=== PATIENT | female | born 1990 | race American Indian/Alaskan Native ===

== ENCOUNTER 2017-01-15 13:05 | Outpatient (CLI) | payer MEDICAID ==
--- NOTE | 2017-01-15 14:33 | Ultrasound Report ---
ULTRASOUND ABDOMEN COMPLETE: Technique: Transabdominal ultrasound with color Doppler interrogation. History: Abdominal pain, nausea and vomiting. Findings: The liver is normal size, contour and echotexture. A large gallstone measuring up to 2.5 cm is identified. There is no evidence for gallbladder wall thickening or surrounding fluid. The CBD measures 2 mm. The visualized portions of the pancreas including the head and proximal body are within normal limits. There are numerous large shadowing renal stones in both kidneys. These may represents staghorn calculi. There may be minimal pyelocaliectasis within the right kidney. No obvious cystic disease or mass. The spleen and aorta are within normal limits. No aneurysmal dilatation is noted. No ascites. The bladder is unremarkable. IMPRESSION: Large gallstone. No findings to suggest acute cholecystitis. Severe bilateral nephrolithiasis. See above. Consider further evaluation with CT stone protocol.
== END 2017-01-15 13:06 | disposition home or self-care (01) ==
LOC: US 13:05
PROVIDERS: ATTEND General Practice
DX: K80.20 Calculus of gallbladder without cholecystitis without obstruction (principal); N20.0 Calculus of kidney; R11.12 Projectile vomiting; R11.0 Nausea
CPT/HCPCS: 76700

== ENCOUNTER 2017-07-23 14:06 | Emergency (ER) | payer MEDICAID, OTHER ==
[2017-07-23 14:41] LABS: Basophils % (Auto) 0.3 % (0.0-1.8); Eosinophils % (Auto) 1.4 % (0.0-4.3); Hematocrit 38.1 % (30.3-42.9); Hemoglobin 12.7 gm/dl (10.1-14.3); Mean Corpuscular HGB Conc 33 % (30-34); Mean Corpuscular Hemoglobin 28 pg (28-32); Mean Corpuscular Volume 84 fl (79-97); Platelet Count 229 K/mm3 (140-440); Red Blood Count 4.56 M/mm3 (3.65-5.03); Red Cell Distribution Width 13.5 % (13.2-15.2); White Blood Count 6.8 K/mm3 (4.5-11.0)
[2017-07-23 15:08] LABS: Alanine Aminotransferase 46 units/L (7-56); Albumin 4.4 g/dL (3.9-5); Albumin/Globulin Ratio 1.4 %; Alkaline Phosphatase 84 units/L (35-129); Anion Gap 18 mmol/L; BUN/Creatinine Ratio 15; Blood Urea Nitrogen 12 mg/dL (7-17); Calcium 9.4 mg/dL (8.4-10.2); Carbon Dioxide 24 mmol/L (22-30); Chloride 100.9 mmol/L (98-107); Glucose 104 mg/dL (65-100); Lipase 44 units/L (13-60); Potassium 4.1 mmol/L (3.6-5.0); Sodium 139 mmol/L (137-145); Total Protein 7.6 g/dL (6.3-8.2)
[2017-07-23 18:25] LABS: Bacteria,Urine 1+ /HPF (Negative); Bilirubin,Urine NEG (Negative); Blood,Urine MOD (Negative); Ketones,Urine NEG (Negative); Leukocyte Esterase,Urine LG (Negative); Nitrite,Urine NEG (Negative); Protein,Urine <15 mg/dL mg/dL (Negative); Urobilinogen,Urine < 2.0 mg/dL (<2.0)
[2017-07-23] MEDS ORDERED: NACL 0.9% 1000 ML 1,000 ML IV ONE (23:05)
[2017-07-23] MEDS ORDERED: TORADOL IV ONE (23:05)
--- NOTE | 2017-07-23 23:08 | Emergency Department Report ---
ED Abdominal Pain HPI - General Chief Complaint: Abdominal Pain Stated Complaint: ABDOMINAL PAIN Time Seen by Provider: 07/23/17 22:50 Source: patient Mode of arrival: Ambulatory Limitations: No Limitations - History of Present Illness Initial Comments: 27 yo female with known h/o gallstones for 1-2 yrs and seen here for the same in December 2016, here tonight with c/o right upper quadrant pain and chest tightness. She denies n/v/f/chills and admits to headache for a long time. Her last menstrual period was 07/17/17 and was abnormally light she thus is wondering if she is . She has one sexual partner and does not use protection. MD Complaint: abdominal pain -: days(s) (1) Location: RUQ Radiation: epigastric, chest Severity: moderate Severity scale (0 -10): 5 Quality: other (punching feeling) Consistency: intermittent Improves With: rest Worsens With: eating Associated Symptoms: other (headache). denies: nausea, vomiting, diarrhea, fever, chills - Related Data Home Medications Medication Instructions Recorded Confirmed Last Taken Magnesium 500 mg PO QDAY 01/04/16 01/04/16 01/04/16 Previous Rx's Medication Instructions Recorded Last Taken Type levETIRAcetam [Keppra TAB] 1,000 mg PO BID #60 tablet 11/26/15 Unknown Rx levETIRAcetam [Keppra TAB] 500 mg PO BID #60 tablet 02/12/16 Unknown Rx HYDROcodone/APAP 5-325 [[place] 1 each PO Q6HR PRN #10 tablet 07/24/17 Unknown Rx 5-325 mg TAB] Levofloxacin [Levaquin] 750 mg PO QDAY #7 tablet 07/24/17 Unknown Rx Allergies Allergy/AdvReac Type Severity Reaction Status Date / Time escitalopram oxalate Allergy Severe Seizure Verified 11/20/15 12:13 [From Lexapro] Sulfa (Sulfonamide Allergy Shortness Verified 07/23/17 14:14 Antibiotics) of Breath sulfamethoxazole Allergy Shortness Verified 07/23/17 14:14 [From Bactrim] of Breath trimethoprim [From Bactrim] Allergy Shortness Verified 07/23/17 14:14 of Breath ED Review of Systems ROS: Stated complaint: ABDOMINAL PAIN Other details as noted in HPI Constitutional: denies: chills, fever Eyes: denies: eye pain, eye discharge, vision change ENT: denies: ear pain, throat pain Respiratory: denies: cough, shortness of breath, wheezing Cardiovascular: denies: chest pain, palpitations Endocrine: no symptoms reported Gastrointestinal: denies: abdominal pain, nausea, vomiting, diarrhea Genitourinary: denies: urgency, dysuria, discharge Musculoskeletal: denies: back pain, joint swelling, arthralgia Skin: denies: rash, lesions Neurological: headache. 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) - Surgical History Past Surgical History?: Yes Additional Surgical History: D/C x 2 - Social History Smoking Status: Never Smoker Substance Use Type: None - Medications Home Medications: Home Medications Medication Instructions Recorded Confirmed Last Taken Type levETIRAcetam [Keppra TAB] 1,000 mg PO BID #60 tablet 11/26/15 01/04/16 Unknown Rx Magnesium 500 mg PO QDAY 01/04/16 01/04/16 01/04/16 History levETIRAcetam [Keppra TAB] 500 mg PO BID #60 tablet 02/12/16 Unknown Rx HYDROcodone/APAP 5-325 [[place] 1 each PO Q6HR PRN #10 tablet 07/24/17 Unknown Rx 5-325 mg TAB] Levofloxacin [Levaquin] 750 mg PO QDAY #7 tablet 07/24/17 Unknown Rx ED Physical Exam - General Limitations: No Limitations General appearance: alert, in no apparent distress - Head Head exam: Present: atraumatic, normocephalic - Eye Eye exam: Present: normal appearance, EOMI. Absent: scleral icterus - ENT ENT exam: Present: mucous membranes moist - Neck Neck exam: Present: normal inspection, full ROM - Respiratory Respiratory exam: Present: normal lung sounds bilaterally. Absent: respiratory distress, wheezes, rales, rhonchi, accessory muscle use, decreased breath sounds - Cardiovascular Cardiovascular Exam: Present: regular rate, normal rhythm, normal heart sounds - GI/Abdominal GI/Abdominal exam: Present: soft, tenderness (ruq), guarding. Absent: rebound, rigid - Rectal Rectal exam: Present: deferred ED Course Vital Signs 07/23/17 07/23/17 07/23/17 14:14 20:43 22:16 Temperature 98.2 F 97.4 F L Pulse Rate 91 H 86 81 Respiratory 18 18 14 Rate Blood Pressure 115/77 108/81 O2 Sat by Pulse 100 100 99 Oximetry 07/23/17 07/23/17 07/23/17 22:27 22:30 22:45 Temperature Pulse Rate 72 70 Respiratory 20 9 L 14 Rate Blood Pressure 113/80 120/82 O2 Sat by Pulse 100 99 99 Oximetry 07/23/17 07/23/17 07/23/17 23:00 23:15 23:30 Temperature Pulse Rate 75 74 83 Respiratory 11 L 13 14 Rate Blood Pressure 121/82 130/86 135/81 O2 Sat by Pulse 100 100 97 Oximetry 07/23/17 07/23/17 07/24/17 23:33 23:45 00:00 Temperature Pulse Rate 69 82 Respiratory 18 13 15 Rate Blood Pressure 113/76 120/63 O2 Sat by Pulse 98 100 Oximetry 07/24/17 07/24/17 07/24/17 00:15 01:11 01:16 Temperature Pulse Rate 81 74 59 L Respiratory 18 13 Rate Blood Pressure 111/63 111/63 111/63 O2 Sat by Pulse 100 99 Oximetry 07/24/17 07/24/17 07/24/17 01:30 01:46 02:00 Temperature Pulse Rate 69 66 73 Respiratory 15 9 L 14 Rate Blood Pressure 111/63 111/63 111/63 O2 Sat by Pulse 98 99 98 Oximetry 07/24/17 07/24/17 07/24/17 02:16 02:30 02:46 Temperature Pulse Rate 76 67 71 Respiratory 13 13 13 Rate Blood Pressure 111/63 111/63 111/63 O2 Sat by Pulse 99 99 98 Oximetry ED Medical Decision Making - Lab Data Result diagrams: 07/23/17 14:28 07/23/17 14:28 - EKG Data -: EKG Interpreted by Pa EKG shows normal: sinus rhythm, axis, intervals, QRS complexes, ST-T waves Rate: normal - EKG Data Interpretation: normal EKG - Radiology Data Radiology results: report reviewed (US Gallbladder: 4 gallstones,no gallblsdder wall thickening, no fluis around gallbladder, right renal stones with increased echo texture suggesting underlying meidcal renal disease) Critical care attestation.: If time is entered above; I have spent that time in minutes in the direct care of this critically ill patient, excluding procedure time. ED Disposition Clinical Impression: Nephrolithiasis Abdominal pain Qualifiers: Abdominal location: right upper quadrant Qualified Code(s): R10.11 - Right upper quadrant pain UTI (urinary tract infection) Qualifiers: Urinary tract infection type: acute cystitis Hematuria presence: with hematuria Qualified Code(s): N30.01 - Acute cystitis with hematuria Cholelithiasis Qualifiers: Cholelithiasis location: gallbladder Cholecystitis presence: without cholecystitis Biliary obstruction: without biliary obstruction Qualified Code(s) : K80.20 - Calculus of gallbladder without cholecystitis without obstruction Disposition: TO HOME OR SELFCARE Is pt being admited?: No Does the pt Need Aspirin: No Condition: Stable Instructions: Abdominal Pain (ED), Urinary Tract Infection in Women (ED), Biliary Colic (ED), Kidney Stones (ED) Prescriptions: HYDROcodone/APAP 5-325 [[place] 5-325 mg TAB] 1 each PO Q6HR PRN #10 tablet PRN Reason: Pain Levofloxacin [Levaquin] 750 mg PO QDAY #7 tablet Referrals: PRIMARY MD PATIENCE [Primary Care Provider] - 3-5 Days KAREN SAN MD [Staff Physician] - 3-5 Days [facility] [Outside] - 3-5 Days FRANCO GRANT MD [Staff Physician] - 3-5 Days
[2017-07-23] MEDS ORDERED: ROCEPHIN/NS 1 GM/50 ML 1 GM/50 ML BAG IV ONE (23:25)
--- NOTE | 2017-07-24 01:37 | Ultrasound Report ---
FINAL REPORT EXAM: US ABDOMEN LIMITED HISTORY: ruq pain/tenderness TECHNIQUE: Routine sonographic evaluation was obtained of the right upper outer quadrant. FINDINGS: The gallbladder is normal in size and wall thickness. There are least 4 shadowing stones in the gallbladder the largest measuring 1.7 cm in diameter. There are no secondary signs of acute cholecystitis or Gil sign. The common bile duct is normal in caliber at 3.3 millimeters. The pancreas is normal in size and echotexture. The liver is normal in size and echotexture. Free fluid is not seen. The right kidney reveals increased echotexture of the cortex along with caliectasis. There are at least 2 shadowing stones in the right kidney. Free fluid is not seen IMPRESSION: Gallstones. No secondary signs of acute cholecystitis. Renal stones with increased echotexture of the kidneys suggesting underlying renal medical disease. There is also non specific caliectasis in the right kidney. Hydronephrosis cannot be excluded.
[2017-07-24 03:53] VITALS: BP 109/69
== END 2017-07-24 03:53 | disposition home or self-care (01) ==
LOC: ED 14:06
DX: N39.0 Urinary tract infection, site not specified (principal); N20.0 Calculus of kidney; K80.20 Calculus of gallbladder without cholecystitis without obstruction; I10 Essential (primary) hypertension; Z88.2 Allergy status to sulfonamides; Z88.8 Allergy status to other drugs, medicaments and biological substances
CPT/HCPCS: 36415; 76705; 80053; 81001; 83690; 84484; 84703; 85025; 85379; 93005; 93010; 96361; 96365; 96375; 99284; J0696; J1885; J7030

== ENCOUNTER 2018-06-03 13:12 | Emergency (ER) | payer MEDICAID ==
[2018-06-03 14:17] LABS: Basophils % (Auto) 0.4 % (0.0-1.8); Eosinophils # (Auto) 0.1 K/mm3 (0.0-0.4); Eosinophils % (Auto) 0.5 % (0.0-4.3); Hematocrit 38.9 % (30.3-42.9); Hemoglobin 12.9 gm/dl (10.1-14.3); Lymphocytes # (Auto) 1.5 K/mm3 (1.2-5.4); Lymphocytes % (Auto) 13.9 % (13.4-35.0); Mean Corpuscular HGB Conc 33 % (30-34); Mean Corpuscular Hemoglobin 28 pg (28-32); Mean Corpuscular Volume 85 fl (79-97); Monocytes # (Auto) 0.5 K/mm3 (0.0-0.8); Monocytes % (Auto) 4.2 % (0.0-7.3); Platelet Count 213 K/mm3 (140-440); Red Cell Distribution Width 13.8 % (13.2-15.2)
[2018-06-03 14:30] LABS: Alanine Aminotransferase 10 units/L (7-56); Albumin 4.7 g/dL (3.9-5); BUN/Creatinine Ratio 13; Blood Urea Nitrogen 13 mg/dL (7-17); Calcium 9.9 mg/dL (8.4-10.2); Hemolysis Index 7; Lipase 38 units/L (13-60)
[2018-06-03 14:59] LABS: Bacteria,Urine 1+ /HPF (Negative); Bilirubin,Urine NEG (Negative); Blood,Urine NEG (Negative); Color,Urine Yellow (Yellow); Protein,Urine <15 mg/dL mg/dL (Negative); Urobilinogen,Urine < 2.0 mg/dL (<2.0)
[2018-06-03] MEDS ORDERED: ZOFRAN ODT PO ONE (17:22)
[2018-06-03] MEDS ORDERED: MACROBID PO ONE (17:22)
[2018-06-03] MEDS ORDERED: NORCO 5/325 PO ONE (17:22)
--- NOTE | 2018-06-03 17:43 | Emergency Department Report ---
ED Abdominal Pain HPI - General Chief Complaint: Abdominal Pain Stated Complaint: STOMACH PAIN Time Seen by Provider: 06/03/18 17:19 Source: patient Mode of arrival: Ambulatory Limitations: No Limitations - History of Present Illness Initial Comments: He is a 28-year-old female who is presenting with 2 days of abdominal pain. Patient had one episode of vomiting here in emergency department. He says the abdominal pain is central and cramping. Patient states it radiates to the epigastrium and she's been nauseous. Patient states it started yesterday morning. Patient tried eating a piece of cake which did not help symptoms. Patient denies any fevers chills nausea vomiting dysuria. She does have some urinary frequency however. - Related Data Home Medications Medication Instructions Recorded Confirmed Last Taken Magnesium 500 mg PO QDAY 01/04/16 01/04/16 01/04/16 Previous Rx's Medication Instructions Recorded Last Taken Type levETIRAcetam [Keppra TAB] 1,000 mg PO BID #60 tablet 11/26/15 Unknown Rx levETIRAcetam [Keppra TAB] 500 mg PO BID #60 tablet 02/12/16 Unknown Rx HYDROcodone/APAP 5-325 [[place] 1 each PO Q6HR PRN #10 tablet 07/24/17 Unknown Rx 5-325 mg TAB] levoFLOXacin [Levaquin] 750 mg PO QDAY #7 tablet 07/24/17 Unknown Rx Nitrofurantoin Monohyd/M-Cryst 100 mg PO BID #14 capsule 06/03/18 Unknown Rx [Macrobid 100 mg Capsule] Ondansetron [Zofran Odt] 4 mg PO Q8HR PRN #10 tab.rapdis 06/03/18 Unknown Rx traMADol [Ultram] 50 mg PO Q6HR PRN #12 tablet 06/03/18 Unknown Rx Allergies Allergy/AdvReac Type Severity Reaction Status Date / Time escitalopram oxalate Allergy Severe Seizure Verified 11/20/15 12:13 [From Lexapro] Sulfa (Sulfonamide Allergy Shortness Verified 07/23/17 14:14 Antibiotics) of Breath sulfamethoxazole Allergy Shortness Verified 07/23/17 14:14 [From Bactrim] of Breath trimethoprim [From Bactrim] Allergy Shortness Verified 07/23/17 14:14 of Breath ED Review of Systems ROS: Stated complaint: STOMACH PAIN Other details as noted in HPI Comment: All other systems reviewed and negative ED Past Medical Hx - Past Medical History Previous Medical History?: Yes Hx Hypertension: Yes Hx Congestive Heart Failure: No Hx Diabetes: No Hx Deep Vein Thrombosis: No Hx Renal Disease: No Hx Sickle Cell Disease: No Hx Seizures: Yes (last 03/2015, after last delivery) Hx Asthma: No Hx COPD: No Hx HIV: No 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) - Surgical History Past Surgical History?: Yes Additional Surgical History: D/C x 2 - Social History Smoking Status: Never Smoker Substance Use Type: Marijuana - Medications Home Medications: Home Medications Medication Instructions Recorded Confirmed Last Taken Type levETIRAcetam [Keppra TAB] 1,000 mg PO BID #60 tablet 11/26/15 01/04/16 Unknown Rx Magnesium 500 mg PO QDAY 01/04/16 01/04/16 01/04/16 History levETIRAcetam [Keppra TAB] 500 mg PO BID #60 tablet 02/12/16 Unknown Rx HYDROcodone/APAP 5-325 [[place] 1 each PO Q6HR PRN #10 tablet 07/24/17 Unknown Rx 5-325 mg TAB] levoFLOXacin [Levaquin] 750 mg PO QDAY #7 tablet 07/24/17 Unknown Rx Nitrofurantoin Monohyd/M-Cryst 100 mg PO BID #14 capsule 06/03/18 Unknown Rx [Macrobid 100 mg Capsule] Ondansetron [Zofran Odt] 4 mg PO Q8HR PRN #10 tab.rapdis 06/03/18 Unknown Rx traMADol [Ultram] 50 mg PO Q6HR PRN #12 tablet 06/03/18 Unknown Rx ED Physical Exam - General Limitations: No Limitations General appearance: alert, in no apparent distress - Head Head exam: Present: atraumatic, normocephalic - Eye Eye exam: Present: normal appearance - ENT ENT exam: Present: mucous membranes moist - Neck Neck exam: Present: normal inspection - Respiratory Respiratory exam: Present: normal lung sounds bilaterally. Absent: respiratory distress, wheezes, rales, rhonchi - Cardiovascular Cardiovascular Exam: Present: regular rate, normal rhythm. Absent: systolic murmur, diastolic murmur, rubs, gallop - GI/Abdominal GI/Abdominal exam: Present: soft, tenderness (Central abdominal pain.), normal bowel sounds. Absent: distended, guarding, rebound - Extremities Exam Extremities exam: Present: normal inspection - Back Exam Back exam: Present: normal inspection - Neurological Exam Neurological exam: Present: alert, oriented X3 - Psychiatric Psychiatric exam: Present: normal affect, normal mood - Skin Skin exam: Present: warm, dry, intact, normal color. Absent: rash ED Course Vital Signs 06/03/18 13:41 Temperature 97.6 F Pulse Rate 72 Respiratory 18 Rate Blood Pressure 133/80 O2 Sat by Pulse 100 Oximetry ED Medical Decision Making - Lab Data Result diagrams: 06/03/18 13:59 06/03/18 13:59 Lab Results 06/03/18 06/03/18 06/03/18 Range/Units 13:59 13:59 13:59 WBC 10.7 (4.5-11.0) K/mm3 RBC 4.60 (3.65-5.03) M/mm3 Hgb 12.9 (10.1-14.3) gm/dl Hct 38.9 (30.3-42.9) % MCV 85 (79-97) fl MCH 28 (28-32) pg MCHC 33 (30-34) % RDW 13.8 (13.2-15.2) % Plt Count 213 (140-440) K/mm3 Lymph % (Auto) 13.9 (13.4-35.0) % [place] % (Auto) 4.2 (0.0-7.3) % Eos % (Auto) 0.5 (0.0-4.3) % Baso % (Auto) 0.4 (0.0-1.8) % Lymph # 1.5 (1.2-5.4) K/mm3 [place] # 0.5 (0.0-0.8) K/mm3 Eos # 0.1 (0.0-0.4) K/mm3 Baso # 0.0 (0.0-0.1) K/mm3 Seg Neutrophils % 81.0 H (40.0-70.0) % Seg Neutrophils # 8.7 H (1.8-7.7) K/mm3 Sodium 141 (137-145) mmol/L Potassium 4.1 (3.6-5.0) mmol/L Chloride 104.1 (98-107) mmol/L Carbon Dioxide 25 (22-30) mmol/L Anion Gap 16 mmol/L BUN 13 (7-17) mg/dL Creatinine 1.0 (0.7-1.2) mg/dL Estimated GFR > 60 ml/min BUN/Creatinine Ratio 13 % Glucose 101 H (65-100) mg/dL Calcium 9.9 (8.4-10.2) mg/dL Total Bilirubin 0.20 (0.1-1.2) mg/dL AST 19 (5-40) units/L ALT 10 (7-56) units/L Alkaline Phosphatase 68 (35-129) units/L Total Protein 7.6 (6.3-8.2) g/dL Albumin 4.7 (3.9-5) g/dL Albumin/Globulin Ratio 1.6 % Lipase 38 (13-60) units/L HCG, Qual Negative (Negative) Urine Color (Yellow) Urine Turbidity (Clear) Urine pH (5.0-7.0) Ur Specific [place] (1.003-1.030) Urine Protein (Negative) mg/dL Urine Glucose (UA) (Negative) mg/dL Urine Ketones (Negative) mg/dL Urine Blood (Negative) Urine Nitrite (Negative) Urine Bilirubin (Negative) Urine Urobilinogen (<2.0) mg/dL Ur Leukocyte Esterase (Negative) Urine WBC (Auto) (0.0-6.0) /HPF Urine RBC (Auto) (0.0-6.0) /HPF U Epithel Cells (Auto) (0-13.0) /HPF Urine Bacteria (Auto) (Negative) /HPF 06/03/18 Range/Units 14:05 WBC (4.5-11.0) K/mm3 RBC (3.65-5.03) M/mm3 Hgb (10.1-14.3) gm/dl Hct (30.3-42.9) % MCV (79-97) fl MCH (28-32) pg MCHC (30-34) % RDW (13.2-15.2) % Plt Count (140-440) K/mm3 Lymph % (Auto) (13.4-35.0) % [place] % (Auto) (0.0-7.3) % Eos % (Auto) (0.0-4.3) % Baso % (Auto) (0.0-1.8) % Lymph # (1.2-5.4) K/mm3 [place] # (0.0-0.8) K/mm3 Eos # (0.0-0.4) K/mm3 Baso # (0.0-0.1) K/mm3 Seg Neutrophils % (40.0-70.0) % Seg Neutrophils # (1.8-7.7) K/mm3 Sodium (137-145) mmol/L Potassium (3.6-5.0) mmol/L Chloride (98-107) mmol/L Carbon Dioxide (22-30) mmol/L Anion Gap mmol/L BUN (7-17) mg/dL Creatinine (0.7-1.2) mg/dL Estimated GFR ml/min BUN/Creatinine Ratio % Glucose (65-100) mg/dL Calcium (8.4-10.2) mg/dL Total Bilirubin (0.1-1.2) mg/dL AST (5-40) units/L ALT (7-56) units/L Alkaline Phosphatase (35-129) units/L Total Protein (6.3-8.2) g/dL Albumin (3.9-5) g/dL Albumin/Globulin Ratio % Lipase (13-60) units/L HCG, Qual (Negative) Urine Color Yellow (Yellow) Urine Turbidity Slightly-cloudy (Clear) Urine pH 7.0 (5.0-7.0) Ur Specific [place] 1.011 (1.003-1.030) Urine Protein <15 mg/dl (Negative) mg/dL Urine Glucose (UA) Neg (Negative) mg/dL Urine Ketones Tr (Negative) mg/dL Urine Blood Neg (Negative) Urine Nitrite Neg (Negative) Urine Bilirubin Neg (Negative) Urine Urobilinogen < 2.0 (<2.0) mg/dL Ur Leukocyte Esterase Lg (Negative) Urine WBC (Auto) 26.0 H (0.0-6.0) /HPF Urine RBC (Auto) 5.0 (0.0-6.0) /HPF U Epithel Cells (Auto) 2.0 (0-13.0) /HPF Urine Bacteria (Auto) 1+ (Negative) /HPF - Medical Decision Making Patient laboratory studies shows she does have a urinary tract infection however her blood tests are within normal limits. Patient be started on meds for symptomatic relief and antibiotics for the UTI should be discharged home. Critical care attestation.: If time is entered above; I have spent that time in minutes in the direct care of this critically ill patient, excluding procedure time. ED Disposition Clinical Impression: Abdominal pain Qualifiers: Abdominal location: generalized Qualified Code(s): R10.84 - Generalized abdominal pain UTI (urinary tract infection) Qualifiers: Urinary tract infection type: acute cystitis Hematuria presence: without hematuria Qualified Code(s): N30.00 - Acute cystitis without hematuria Disposition: TO HOME OR SELFCARE Is pt being admited?: No Does the pt Need Aspirin: No Condition: Stable Instructions: Abdominal Pain (ED), Urinary Tract Infection in Women (ED) Referrals: PRIMARY CARE [Primary Care Provider] - 3-5 Days Time of Disposition: 17:44
[2018-06-03 18:40] VITALS: BP 120/78
== END 2018-06-03 18:41 | disposition home or self-care (01) ==
LOC: ED 13:12
DX: N30.00 Acute cystitis without hematuria (principal); I10 Essential (primary) hypertension
CPT/HCPCS: 36415; 80053; 81001; 83690; 84703; 85025; Q0162